=== PATIENT | male | born 1985 | race Two or more races ===

== ENCOUNTER 2018-06-25 18:03 | Emergency (ER) | payer BC ==
[~2018-06-25] VITALS: Ht 172.7 cm; Wt 108.9 kg
--- NOTE | 2018-06-25 18:37 | NUR ---
Patient is resting comfortably on gurney while looking at his personal electronic device, NAD, calm and breathing easily.
--- NOTE | 2018-06-25 18:44 | NUR ---
Dr Hancock is at bedside. MSE in progress
[2018-06-25] MEDS ORDERED: KETOROLAC TROMETHAMINE 60 MG INJ IM ONE ×2 (18:51→19:00)
--- NOTE | 2018-06-25 19:05 | NUR ---
Patient discharged to home in stable conditon & brisk steady gait. Written and verbal after care instructions given to patient. Patient verbalizes understanding of instructions.
== END 2018-06-25 19:06 | disposition home or self-care (01) ==
LOC: ER 18:05
DX: M54.5 Low back pain (principal)
CPT/HCPCS: 96372; 99283; J1885; A4663